=== PATIENT | male | born 1990 | race Two or more races ===

== ENCOUNTER 2022-05-27 08:20 | Outpatient (CLI) | payer OTHER | END 2022-05-27 08:22 | disposition home or self-care (01) | LOC: NUCLEAR 08:20 | DX: I87.2 Venous insufficiency (chronic) (peripheral) (principal) ==

== ENCOUNTER 2023-06-04 17:12 | Inpatient (IN) | payer OTHER ==
[~2023-06-04] VITALS: Ht 170.2 cm; Wt 143.8 kg
--- NOTE | 2023-06-04 17:53 | NUR ---
SE RECIBE PTE ALERTA Y ORIENTADO X3 PTE REFIERE QUE ESTABA TOMANDO LUAGR DONDE VENDEN ALCOCHOL Y REFIERE QUE LO ENVENARON NO RECUERDA DESPUES DE [place] NADA AMANECIO EN LA CASA. INIDICA DESPUES DE SUCCESO NO PUEDE RESPIRAR AL MOMENTO SAT: 87%-89% LLEVA 10MIN EL SATUROMETRO Y SE REALIZA CAMBIO Y CONTINUA SATURANDO IGUAL. SE REALIZA EKG Y SE PRESENTA A DR. MACIEL. SE BREANN ERICK;ES Y SE UBICA OBSERVACION. GOMEZ DR. MARIE JOSÉ PTE INDICA QUE NO TIENE NINGUNA CONDICION MEDICA. SE OBSERVA PTE MIKE 317LIBRAS
--- NOTE | 2023-06-04 19:42 | NUR ---
RN [facility] ORIENTA A PTE SOBRE TRATAMIENTO E INSTRUCCIONES A SEGUIR, EL REFIERE ENTENDER. LE COLECTA MUESTRAS, SE CANALIZA Y SE ADMINISTRA MEDICAMENTO PHILIP ORDEN MEDICA.
[2023-06-09] MEDS ORDERED: SYMBICORT 16010.2 GM IH (12:19)
[2023-06-09] MEDS ORDERED: INTESTINEX680 M1 PO (12:19)
[2023-06-09] MEDS ORDERED: COZAAR50 MG PO (12:19)
[2023-06-09] MEDS ORDERED: AMOX1TAB5 PO (12:19)
[2023-06-09] MEDS ORDERED: LIPITOR20 MG PO (12:19)
== END 2023-06-09 16:58 | disposition home or self-care (01) | DRG 190 ==
LOC: ER 17:12 → MEDJ 22:57 → SEC-K 06-05 03:56 → MEDI 06-06 13:22
PROVIDERS: General Practice; Internal Medicine; ADMIT Internal Medicine; ATTEND Internal Medicine
PROC: 5A0945A Assistance with Respiratory Ventilation, 24-96 Consecutive Hours, High Flow/Velocity Cannula (ICD-10-PCS; principal; 2023-06-04)
PROC: BB24YZZ Computerized Tomography (CT Scan) of Bilateral Lungs using Other Contrast (ICD-10-PCS; 2023-06-04)
PROC: B54DZZZ Ultrasonography of Bilateral Lower Extremity Veins (ICD-10-PCS; 2023-06-04)
PROC: B246ZZZ Ultrasonography of Right and Left Heart (ICD-10-PCS; 2023-06-04)
PROC: B44HZZZ Ultrasonography of Bilateral Lower Extremity Arteries (ICD-10-PCS; 2023-06-04)
PROC: 4A12X4Z Monitoring of Cardiac Electrical Activity, External Approach (ICD-10-PCS; 2023-06-06)
DX: J44.1 Chronic obstructive pulmonary disease with (acute) exacerbation (principal); J69.0 Pneumonitis due to inhalation of food and vomit; J96.21 Acute and chronic respiratory failure with hypoxia; I83.213 Varicose veins of right lower extremity with both ulcer of ankle and inflammation; L97.319 Non-pressure chronic ulcer of right ankle with unspecified severity; J98.11 Atelectasis; Z68.42 Body mass index [BMI] 45.0-49.9, adult; B37.89 Other sites of candidiasis; J44.0 Chronic obstructive pulmonary disease with (acute) lower respiratory infection; J20.9 Acute bronchitis, unspecified; J45.998 Other asthma; R73.03 Prediabetes; F17.210 Nicotine dependence, cigarettes, uncomplicated; G47.33 Obstructive sleep apnea (adult) (pediatric); E66.01 Morbid (severe) obesity due to excess calories

== ENCOUNTER 2024-12-23 12:37 | Inpatient (IN) | payer OTHER ==
[~2024-12-23] VITALS: Ht 165.1 cm; Wt 113.4 kg
[~2024-12-23 12:37] MED LIST: AMOX1TAB5 PO; COZAAR50 MG PO; INTESTINEX680 M1 PO; LIPITOR20 MG PO; SYMBICORT 16010.2 GM IH
[2024-12-23] MEDS ORDERED: METHYLPREDNISOLONE SOD SUCC 125 MG VIAL IV ONE (13:45)
[2024-12-23] MEDS ORDERED: LEVALBUTEROL HCL 1.25 MG/3 ML SOLUTION IH ONE ×2 (13:45→16:31)
[2024-12-23] MEDS ORDERED: IPRATROPIUM BROMIDE 0.5 MG/2.5 ML AMPUL.NEB IH ONE ×2 (13:45→16:31)
[2024-12-23] MEDS ORDERED: MONTELUKAST SODIUM 10 MG TABLET PO ONE (13:45)
[2024-12-23] MEDS ORDERED: METHYLPREDNISOLONE SOD SUCC 125 MG VIAL ONE (15:02)
[2024-12-23 16:14] LABS: HEMATOCRIT 48.9 % (39.0-48.0); HEMOGLOBIN 16.1 g/dL (13-16.00); MEAN CELL VOLUME 91.6 fL (80.0-100.00); MEAN CORPUSCULAR HEMOGLOBIN 30.1 pg (27.00-32.0); MEAN CORPUSCULAR HGB CONC 32.8 g/dl (32.0-36.0); PLATELET COUNT 250 K/uL (150-450); RED BLOOD COUNT 5.34 M/uL (4.00-6.00); RED CELL DISTRIBUTION WIDTH 13.5 % (11.5-14.5)
[2024-12-23] MEDS ORDERED: ZITHROMAX TRI-500 MG PO (18:41)
[2024-12-23] MEDS ORDERED: BUDESONIDE0.5 MG/2 M IH (18:41)
[2024-12-23] MEDS ORDERED: ALBUTEROL2.5 MG/3 M IH (18:41)
[2024-12-23 20:01] LABS: BILIRUBIN TOTAL 1.1 mg/dL (0.3-1.2); CALCIUM 9.4 mg/dL (8.5-10.1); CREATININE SERUM 1.08 mg/dL (0.70-1.30); GFR 78.27; GLOBULINA 4.6 G/DL (2.4-3.5); POTASSIUM 3.83 mEq/L (3.5-5.1); TOTAL PROTEIN 8.6 gm/dL (6.4-8.2)
[2024-12-23 20:08] LABS: URINE APPEARANCE Cloudy; URINE BILIRRUBIN Negative (NEGATIVE); URINE BLOOD Negative; URINE COLOR Yellow; URINE GLUCOSE Negative (NEGATIVE); URINE KETONE Negative (NEGATIVE); URINE LEUKOCYTE Negative; URINE NITRATE Negative; URINE PROTEIN Negative (NEGATIVE); URINE RBC 6.4 uL (0.0-20.8)
[2024-12-23 20:09] LABS: URINE EPITHELIAL CELLS 0.9 uL (0.0-38.8); URINE WBC 0.4 uL (0.0-23.2)
[2024-12-23] MEDS ORDERED: AZITHROMYCIN 500 MG in DEXTROSE 5 % IN WATER 250 ML IV SCH (20:54)
[2024-12-23] MEDS ORDERED: CEFTRIAXONE SODIUM 2,000 MG in 0.9 % SODIUM CHLORIDE 100 ML IV SCH (20:54)
[2024-12-23] MEDS ORDERED: ENOXAPARIN SODIUM 40 MG/0.4 ML SYRINGE SUBCUTANEO SCH (20:57)
[2024-12-23] MEDS ORDERED: IPRATROPIUM/ALBUTEROL SULFATE 3 ML AMPUL.NEB IH SCH (21:00)
[2024-12-23] MEDS ORDERED: ENALAPRILAT DIHYDRATE 1.25 MG/ML VIAL IV PRN (21:00)
[2024-12-23] MEDS ORDERED: KETOROLAC TROMETHAMINE 15 MG VIAL IU ONE (21:00)
[2024-12-23] MEDS ORDERED: ACETAMINOPHEN 500 MG GEL..CAP PO PRN (21:00)
[2024-12-23] MEDS ORDERED: CEFTRIAXONE SODIUM 2,000 MG VIAL ONE (22:27)
[2024-12-23] MEDS ORDERED: KETOROLAC TROMETHAMINE 30 MG VIAL ONE (22:27)
[2024-12-23] MEDS ORDERED: ENOXAPARIN SODIUM 40 MG/0.4 ML SYRINGE SUBCUTANEO ONE (22:28)
[2024-12-23] MEDS ORDERED: AZITHROMYCIN 500 MG VIAL IV ONE (22:28)
[2024-12-23 23:02] VITALS: BP 130/85; O2SAT 94
[2024-12-23 23:27] LABS: ABG PH 7.454 (7.35-7.45); ABG pCO2 39.5 mmHg (35-45)
[2024-12-23 23:28] LABS: ABG PO2 52.4 mmHg (80-100); BICARBONATE 27.1 mmol/l (23-25); SaO2 88.8 %; Tco2 28.3 mmol/l; allen test SATISFACTORY; o2 21 %; puncture site RADIAL LEFT
[2024-12-23 23:40] VITALS: BP 135/87; O2SAT 97
[2024-12-23 23:46] LABS: INR 1.11; PARTIAL THROMBOPLASTIN TIME 32.5 SECONDS (22.0-34.0)
[2024-12-24] MEDS ORDERED: GUAIFEN/DEXTROMETHORPHAN/PE 10 ML BLIST.PACK PO SCH (02:00)
[2024-12-24 04:00] VITALS: BP 118/81; O2SAT 95
[2024-12-24] MEDS ORDERED: FAMOTIDINE/PF 20 MG in 0.9 % SODIUM CHLORIDE 8 ML IV PUSH SCH (09:00)
[2024-12-24] MEDS ORDERED: AZITHROMYCIN 500 MG VIAL IV SCH (09:00)
[2024-12-24] MEDS ORDERED: FLUTICASONE PROPIONATE 50 MCG SPRAY NASAL SCH (10:51)
[2024-12-24 11:00] VITALS: BP 143/83
[2024-12-24] MEDS ORDERED: PREDNISONE 10 MG TABLET PO NR (11:15)
[2024-12-24] MEDS ORDERED: LACTOBACILLUS ACIDOPHILUS 1 CAP CAP PO SCH (17:00)
[2024-12-24 18:40] VITALS: BP 150/80
[2024-12-25 01:18] VITALS: BP 174/115; O2SAT 97
[2024-12-25 05:58] VITALS: BP 154/100; O2SAT 97
[2024-12-25] MEDS ORDERED: AZITHROMYCIN 500 MG VIAL IV ONE (08:05)
[2024-12-25 08:20] VITALS: BP 151/90; O2SAT 99
[2024-12-25] MEDS ORDERED: PREDNISONE 10 MG TABLET PO SCH (09:00)
[2024-12-25 17:46] VITALS: BP 157/103
[2024-12-26 01:45] VITALS: BP 153/104; O2SAT 98
[2024-12-26 04:58] VITALS: BP 137/90; O2SAT 100
[2024-12-26 08:22] VITALS: BP 146/92; O2SAT 94
[2024-12-26 21:17] LABS: ALBUMIN 3.4 gm/dL (3.4-5.0); BILIRUBIN TOTAL 0.45 mg/dL (0.3-1.2); CALCIUM 9.5 mg/dL (8.5-10.1); CREATININE SERUM 0.74 mg/dL (0.70-1.30); GFR 121.07; GLOBULINA 3.8 G/DL (2.4-3.5); POTASSIUM 4.3 mEq/L (3.5-5.1); TOTAL PROTEIN 7.2 gm/dL (6.4-8.2)
[2024-12-26 22:47] VITALS: BP 160/85
[2024-12-27 01:42] VITALS: BP 172/113; O2SAT 96
[2024-12-27 05:37] VITALS: BP 154/90; O2SAT 97
[2024-12-27 06:53] LABS: HEMATOCRIT 44.3 % (39.0-48.0); MEAN CELL VOLUME 91.9 fL (80.0-100.00); MEAN CORPUSCULAR HEMOGLOBIN 31.1 pg (27.00-32.0); MEAN CORPUSCULAR HGB CONC 33.9 g/dl (32.0-36.0); PLATELET COUNT 257 K/uL (150-450); RED BLOOD COUNT 4.81 M/uL (4.00-6.00); RED CELL DISTRIBUTION WIDTH 13.7 % (11.5-14.5)
[2024-12-27 08:50] VITALS: BP 157/114
[2024-12-27 10:17] VITALS: BP 150/97
[2024-12-27 18:12] VITALS: BP 150/70
[2024-12-27] MEDS ORDERED: FAMOtidine 20 MG TABLET PO SCH (21:00)
[2024-12-28 01:08] VITALS: BP 136/102
[2024-12-28 08:56] VITALS: BP 149/100
[2024-12-28] MEDS ORDERED: IPRAT-ALBUT 0.5-3 ML IH (15:01)
[2024-12-28] MEDS ORDERED: MEDROLPACK PO (15:01)
[2024-12-28] MEDS ORDERED: LOSARTAN POTASSIUM 50 MG TABLET PO SCH (17:00)
== END 2024-12-28 15:21 | disposition home or self-care (01) | DRG 202 ==
LOC: ER 12:38 → SEC-K 21:51 → MEDI 21:51
PROVIDERS: General Practice; Internal Medicine Infectious Disease; Preventive Medicine Public Health & General Preventive Medicine; ADMIT Internal Medicine; ATTEND Internal Medicine
PROC: BB24ZZZ Computerized Tomography (CT Scan) of Bilateral Lungs (ICD-10-PCS; principal; 2024-12-23)
PROC: 3E0F7GC Introduction of Other Therapeutic Substance into Respiratory Tract, Via Natural or Artificial Opening (ICD-10-PCS; 2024-12-24)
PROC: 5A09457 Assistance with Respiratory Ventilation, 24-96 Consecutive Hours, Continuous Positive Airway Pressure (ICD-10-PCS; 2024-12-24)
DX: J45.41 Moderate persistent asthma with (acute) exacerbation (principal); J96.01 Acute respiratory failure with hypoxia; R65.10 Systemic inflammatory response syndrome (SIRS) of non-infectious origin without acute organ dysfunction; J06.9 Acute upper respiratory infection, unspecified; Z72.0 Tobacco use; I10 Essential (primary) hypertension; G47.33 Obstructive sleep apnea (adult) (pediatric)